=== PATIENT | female | born 1975 | race Two or more races ===

== ENCOUNTER 2018-03-04 17:25 | Emergency (ER) | payer OTHER ==
[~2018-03-04] VITALS: Ht 162.6 cm; Wt 72.6 kg
[~2018-03-04 17:25] MED LIST: INTESTINEX1 CAP PO; LEVSIN/SL0.125 MG PO
== END 2018-03-04 21:19 | disposition home or self-care (01) ==
LOC: ER 17:25
DX: R42 Dizziness and giddiness (principal)

== ENCOUNTER 2019-06-24 21:47 | Emergency (ER) | payer OTHER ==
[~2019-06-24] VITALS: Ht 162.6 cm; Wt 72.6 kg
== END 2019-06-25 01:27 ==
LOC: ER 21:47
DX: J06.9 Acute upper respiratory infection, unspecified (principal); M94.0 Chondrocostal junction syndrome [Tietze]; R00.2 Palpitations; R05 Cough

== ENCOUNTER 2024-11-18 20:35 | Emergency (ER) | payer OTHER ==
[~2024-11-18] VITALS: Ht 162.6 cm; Wt 81.6 kg
[2024-11-19 08:53] LABS: HEMATOCRIT 36.7 % (36.0-45.00); HEMOGLOBIN 12.3 g/dL (12.0-15.00); MEAN CELL VOLUME 79.1 fL (80.00-100.00); MEAN CORPUSCULAR HEMOGLOBIN 26.6 pg (27.00-32.0); MEAN CORPUSCULAR HGB CONC 33.6 g/dl (32.0-36.0); PLATELET COUNT 364 K/uL (150-450); RED BLOOD COUNT 4.64 M/uL (4.00-6.00); RED CELL DISTRIBUTION WIDTH 19.9 % (11.5-14.5)
[2024-11-19 09:28] LABS: ALBUMIN 3.7 gm/dL (3.4-5.0); BILIRUBIN TOTAL 0.48 mg/dL (0.3-1.2); CALCIUM 9.3 mg/dL (8.5-10.1); CREATININE SERUM 0.73 mg/dL (0.55-1.02); GFR 85.45; GLOBULINA 4.3 G/DL (2.4-3.5); POTASSIUM 4.07 mEq/L (3.5-5.1)
== END 2024-11-19 11:29 | disposition home or self-care (01) ==
LOC: ER 20:38
PROVIDERS: General Practice
DX: R00.2 Palpitations (principal); Z91.012 Allergy to eggs; Z88.8 Allergy status to other drugs, medicaments and biological substances

== ENCOUNTER 2025-07-09 08:07 | Outpatient (CLI) | payer OTHER ==
[2025-07-09 08:49] LABS: URINE APPEARANCE Clear; URINE BILIRRUBIN Negative (NEGATIVE); URINE BLOOD Negative; URINE COLOR Yellow; URINE GLUCOSE Negative (NEGATIVE); URINE KETONE Negative (NEGATIVE); URINE LEUKOCYTE Negative; URINE NITRATE Negative; URINE PROTEIN Negative (NEGATIVE); URINE UROBILINOGEN 0.2 E.U./dl
[2025-07-09 08:58] LABS: URINE BACTERIA 167.9 uL (0.0-1933); URINE EPITHELIAL CELLS 5.8 uL (0.0-38.8)
[2025-07-09 09:04] LABS: BASO % 0.3 % (0.1-1.2); EOS # 0.12 (0.04-0.54); EOS % 1.9 % (0.7-7.0); LYMPH # 1.56 (1.18-3.74); LYMPH % 24.5 % (19.3-53.1); MEAN PLATELET VOLUME 9.60 fl (9.4-12.4); MONO # 0.40 (0.24-0.82); MONO % 6.3 % (4.7-12.5); NEUT # 4.26 (1.56-6.13); NEUT % 66.8 % (34.0-71.1); RED CELL DISTRIBUTION WIDTH 17.2 % (11.6-14.4)
[2025-07-09 09:12] LABS: URINE CAST 0.00 uL (0.0-1.40); URINE RBC 1.7 uL (0.0-20.8); URINE WBC 1.3 uL (0.0-23.2)
[2025-07-09 10:24] LABS: ALT/SGPT 16.0 U/L (12-78); AST/SGOT 12.0 U/L (15-37); BILIRUBIN TOTAL 0.46 mg/dL (0.3-1.2); BUN CREA RATIO 19.0 (7.0-25.0); CHOL HDL RATIO 2.9 (0-5.0); CREATININE SERUM 0.79 mg/dL (0.55-1.02); FREE TRIODOTIRONINE 2.63 pg/ml (2.18-3.98); GFR 77.68; GLOBULINA 3.7 G/DL (2.4-3.5); GLUCOSE FASTING 91.0 mg/dL (65-100); HDL 61.0 mg/dl (40-60); LDL 100.0 mg/dl (0-130); OSMOLALITY SERUM 285.0 MOSM/KG (275-295); T4 FREE 1.02 NG/ML (0.76-1.46); T4 TOTAL 7.53 UG/DL (4.8-13.9); TSH 1.08 uIU/mL (0.358-3.74); VLDL 14.0 (0-39)
[2025-07-09 12:08] LABS: VITAMIN D3 25 HYDROXY 32.87 ng/ml (30-120)
[2025-07-10 09:08] LABS: ANTI THYROID PEROXIDASE < 9 IU/mL (0-34); ESTRADIOL SERUM 86.6 pg/mL (.); HOMOCYSTEINE 8.7 umol/L (0.0-14.5); INSULIN LEVELS 10.1 uIU/mL (2.6-24.9); LEUTEINIZING HORMONE 8.7 mIU/mL (.); PROGESTERONA 5.4 ng/mL (.)
[2025-07-11 15:11] LABS: T T 25.0 ng/dL (4-50); test free 1.6 pg/mL (0.0-4.2)
== END 2025-07-09 08:08 | disposition home or self-care (01) ==
LOC: LAB 08:07
PROVIDERS: ATTEND Obstetrics & Gynecology
DX: E03.8 Other specified hypothyroidism (principal); E56.8 Deficiency of other vitamins; E55.0 Rickets, active; E78.2 Mixed hyperlipidemia; N95.1 Menopausal and female climacteric states; N95.8 Other specified menopausal and perimenopausal disorders; E16.1 Other hypoglycemia; R79.82 Elevated C-reactive protein (CRP); Z13.1 Encounter for screening for diabetes mellitus; R30.0 Dysuria; D50.8 Other iron deficiency anemias; Z12.11 Encounter for screening for malignant neoplasm of colon; R74.8 Abnormal levels of other serum enzymes

== ENCOUNTER 2025-07-09 09:50 | Outpatient (CLI) | payer OTHER | END 2025-07-09 09:52 | disposition home or self-care (01) | LOC: MAMO-SONO 09:50 | PROVIDERS: ATTEND Obstetrics & Gynecology | DX: N64.4 Mastodynia (principal); Z80.3 Family history of malignant neoplasm of breast; Z12.31 Encounter for screening mammogram for malignant neoplasm of breast ==